=== PATIENT | female | born 1975 | race Asian ===

== ENCOUNTER 2019-01-17 16:02 | Emergency (ER) | payer BC ==
[~2019-01-17] VITALS: Ht 157.5 cm; Wt 51.7 kg
[2019-01-17 17:52] VITALS: BP 102/67
--- NOTE | 2019-01-17 17:52 | NUR ---
Patient discharged to home in stable conditon. Written and verbal after care instructions given. Patient verbalizes understanding of instructions.
== END 2019-01-17 17:55 | disposition home or self-care (01) ==
LOC: ER 16:05
DX: R10.10 Upper abdominal pain, unspecified (principal); R50.9 Fever, unspecified
CPT/HCPCS: 76705; A4663